=== PATIENT | female | born 1980 | race Caucasian/White ===

== ENCOUNTER 2016-08-19 18:02 | Inpatient (IN) | payer BC ==
[2016-08-19] MEDS ORDERED: LIDOCAINE 1% (PF) 10 MG/ML (30 ML SDV) SQ PRN (18:37)
[2016-08-19] MEDS ORDERED: OXYTOCIN 10 UNIT/ML 1 ML VIAL IM PRN (18:37)
[2016-08-19] MEDS ORDERED: METHYLERGONOVINE 0.2 MG/ML 1 ML AMP IM PRN (18:37)
[2016-08-19] MEDS ORDERED: TERBUTALINE 1 MG/ML VIAL SQ PRN (18:37)
[2016-08-19] MEDS ORDERED: CARBOPROST TROMETHAMINE 250 MCG/ML 1 ML AMP IM PRN (18:37)
[2016-08-19 18:41] LABS: Basophils % (A) 0 %; CH 32.3; CHCM 35.5; Eosinophils # (A) 0.1 k/uL (0-0.7); Eosinophils % (A) 1 %; HCT 34.6 % (34.0-46.0); HGB 11.8 gm/dL (11.4-16.0); Luc # (Auto) 0.16; Luc % (Auto) 2; Lymphocytes % (A) 20 %; MCH 31.2 pg (25.0-35.0); MCHC 34.1 g/dL (31.0-37.0); MCV 91.5 fL (80.0-100.0); Monocytes # (A) 0.4 k/uL (0-1.0); Monocytes % (A) 4 %; Neutrophils # (A) 7.2 k/uL (1.3-7.7); Neutrophils % (A) 73 %; RBC 3.78 m/uL (3.80-5.40); RDW 14.1 % (11.5-15.5); WBC 9.9 k/uL (3.8-10.6)
[2016-08-19] MEDS ORDERED: LACTATED RINGERS 1,000 ML IV SCH ×2 (18:45)
--- NOTE | 2016-08-19 19:16 | P.HPOB ---
History of Present Illness H&P Date: 08/19/16 Chief Complaint: 40-0/7 weeks, active labor The patient is a 36-year-old 3 para 1011 admitted at 40-0/7 weeks as established by last menstrual period and confirmed by second trimester ultrasound per she is admitted in active labor with documented spontaneous rupture of membranes. Her has been complicated by nephrolithiasis and no other concerns. Initial ultrasound showed full renal pelves at 19 weeks but rescan at 28 weeks was within normal limits. Group B strep status is negative. Obstetrical history: 3 para 1011 with 1 previous term vaginal delivery without compilations. Current statistics are listed above. EDC of was established by last menstrual period and confirmed by second trimester ultrasound. Laboratory workup done Schutze blood type of O+ with a negative antibody screen. Rubella status is immune. All other laboratory workup was within normal limits. Second trimester Glucola was normal and group B strep status is negative. Gynecologic history: Unremarkable with no history of any infections to include STDs. Review of Systems Review of systems is confined to history of present illness. Past Medical History Past Medical History: No Reported History History of Any Multi-Drug Resistant Organisms: None Reported Additional Past Surgical History / Comment(s): D&C in 2012, left breast surgery in 2001. Past Anesthesia/Blood Transfusion Reactions: No Reported Reaction Past Psychological History: No Psychological Hx Reported Smoking Status: Never smoker Past Alcohol Use History: None Reported Past Drug Use History: None Reported - Past Family History Mother Family Medical History: No Reported History Medications and Allergies Home Medications Medication Instructions Recorded Confirmed Type Pnv66/Iron Fumarate/FA/Dss/Dha 1 tab PO DAILY 05/19/16 05/19/16 History [Triveen-Prx Rnf Capsule] Allergies Allergy/AdvReac Type Severity Reaction Status Date / Time benzoyl peroxide AdvReac Rash/Hives Verified 05/19/16 04:45 Exam - Vital Signs Vital signs: Intake and Output 08/19/16 08/19/16 08/19/16 06:59 14:59 22:59 Other: Weight 63.049 kg Patient Weight 08/20/16 06:59 Weight 63.049 kg In general, this is a well-developed, well-nourished white female in discomfort as she is in active labor. Her heart has a regular rhythm and rate without murmur. Her lungs are clear to auscultation bilaterally in all egan. Her abdomen is gravid, nondistended, has normal active bowel sounds, is soft, nontender, without any palpable masses aside from uterine fundus. Her extremities are without any cyanosis, clubbing, or edema and are nontender to palpation bilaterally. Digital cervical examination demonstrates her cervix to be anterior lip, 90% effaced, the vertex in presentation at -1 station. Spontaneous rupture of membranes has been confirmed. Results Result Diagrams: 08/19/16 18:27 Abnormal Lab Results - Last 24 Hours (Table) 08/19/16 Range/Units 18:27 RBC 3.78 L (3.80-5.40) m/uL Assessment and Plan (1) Spontaneous rupture of amniotic membranes Status: Acute (2) Active labor at term Status: Acute Plan: The patient has been admitted for active management of labor. She has progressed very rapidly from presentation to anterior lip and is not a candidate at this point for epidural analgesia or IV analgesia. She will have expectant management along with close maternal and observation. I would anticipate normal vaginal delivery in the near future.
[2016-08-19 19:37] VITALS: BMI 24.6
[2016-08-19] MEDS ORDERED: Acetaminophen-Codeine 300-30mg TAB PO PRN ×2 (19:50)
[2016-08-19] MEDS ORDERED: BENZOCAINE/MENTHOL SPRAY 1 GM/SPRAY AEROSOL TOPICAL PRN (19:50)
[2016-08-19] MEDS ORDERED: SIMETHICONE 80 MG CHEWABLE PO PRN (19:50)
[2016-08-19] MEDS ORDERED: HYDROCORTISONE 2.5% RECTAL CREAM 30 GM TUBE RECTAL PRN (19:50)
[2016-08-19] MEDS ORDERED: diphenhydrAMINE 50 MG/ML 1 ML VIAL IVP PRN ×2 (19:50)
[2016-08-19] MEDS ORDERED: ZOLPIDEM 5 MG TAB PO PRN (19:50)
[2016-08-19] MEDS ORDERED: diphenhydrAMINE 25 MG CAP PO PRN (19:50)
[2016-08-19] MEDS ORDERED: diphenhydrAMINE 50 MG CAP PO PRN (19:50)
[2016-08-19] MEDS ORDERED: WITCH HAZEL 1 EACH MED..PAD TOPICAL PRN (19:50)
[2016-08-19] MEDS ORDERED: LANOLIN CREAM 5 GM TUBE TOPICAL PRN (19:50)
[2016-08-19] MEDS ORDERED: ACETAMINOPHEN TAB 325 MG TAB PO PRN (19:50)
--- NOTE | 2016-08-19 19:54 | P.PROBDLV ---
Vaginal Delivery Note - . Vaginal Delivery Note: The patient is a 36-year-old 3 para 1011 admitted at 40-0/7 weeks by good dating parameters perches admitted in active labor with spontaneous rupture of membranes and all signs reassuring. Her has been uncomplicated aside from nephrolithiasis. Group B strep status is negative. On labor and delivery, she was admitted at 5-600 m of dilation progressed fairly quickly to complete and 0 station. She pushed over the course of 1 contraction to a normal spontaneous vaginal delivery of a viable 8 lbs. 7 oz. baby girl with Apgars of 8 at 1 minute and 9 at 5 minutes delivered in the left occiput anterior position. The placenta was delivered spontaneously, intact, and grossly normal with a grossly normal, centrally inserted three-vessel cord. There were noted to be 2 lacerations, the first of which was a second-degree right labial laceration with a pumping blood vessel. This was closed with 3-0 chromic catgut without difficulty and did halt the bleeding. The second laceration was a first-degree midline perineal laceration which was over the site of a previous episiotomy scar and closed in standard fashion with 3-0 chromic catgut as well. Estimated blood loss for the case was approximate 450 mL. There were no complications. All sponge, instrument, and needle counts were correct. Both mother and infant are resting comfortably in recovery.
[2016-08-19] MEDS ORDERED: OXYTOCIN 30 UNITS/500 ML NS 30 UNIT in SALINE 1 500ML.BAG IV SCH (20:00)
[2016-08-19] MEDS: SENNOSIDES-DOCUSATE SODIUM 1 EACH TAB PO SCH (22:11)
[2016-08-19] MEDS: IBUPROFEN 600 MG TAB PO PRN (22:11)
[2016-08-20] MEDS: SENNOSIDES-DOCUSATE SODIUM 1 EACH TAB PO SCH ×2 (08:59→22:00)
[2016-08-20] MEDS: IBUPROFEN 600 MG TAB PO PRN ×2 (12:08→23:42)
--- NOTE | 2016-08-20 12:09 | P.PNOBGVD ---
Subjective - Subjective Patient reports: Reports appetite normal, Reports voiding normally, Reports pain well controlled, Reports ambulating normally : doing well, nursing well Objective - Latest Vital Signs Latest vital signs: Vital Signs Temp Pulse Pulse Resp BP BP Pulse Ox 08/20/16 08:00 97.9 F 90 16 102/65 08/20/16 04:00 98.2 F 73 18 101/67 08/20/16 00:00 97.8 F 97 18 115/73 08/19/16 21:41 99.1 F 84 18 107/61 08/19/16 21:11 98.2 F 87 18 113/63 96 08/19/16 20:41 82 16 107/60 08/19/16 20:26 88 18 105/60 08/19/16 20:11 98.5 F 87 18 110/63 98 08/19/16 19:56 88 18 112/65 08/19/16 19:41 97.6 F 88 17 116/70 98 08/19/16 19:13 97.3 F L 87 20 130/69 Intake and Output 08/19/16 08/20/16 08/20/16 22:59 06:59 14:59 Intake Total 600 Balance 600 Intake: Oral 600 Other: # Voids 1 1 Weight 63.049 kg - Exam Lungs: bilateral: normal Chest: Normal S1, Normal S2 Extremities: Present: normal Abdomen: Present: normal appearance, soft Uterus: Present: normal, firm (The uterine fundus is tonic and nontender well below the umbilicus.) - Labs Labs: Abnormal Lab Results - Last 24 Hours (Table) 08/19/16 Range/Units 18:27 RBC 3.78 L (3.80-5.40) m/uL Assessment and Plan (1) Spontaneous rupture of amniotic membranes Current Visit: Yes Status: Acute Code(s): EEA6157 - SNOMED Code(s): 019436265 (2) Active labor at term Current Visit: Yes Status: Acute Code(s): MNL7428 - SNOMED Code(s): 40819762 (3) Normal spontaneous vaginal delivery Narrative/Plan: Continue routine care. I would anticipate discharge home tomorrow pending no complications. Current Visit: Yes Status: Acute Code(s): O80 - ENCOUNTER FOR FULL-TERM UNCOMPLICATED DELIVERY SNOMED Code(s): 32097234
[2016-08-20 23:57] VITALS: TEMP 98.5
[2016-08-21 08:00] VITALS: BP 116/67; PULSE 77; RESP 18
[2016-08-21] MEDS: SENNOSIDES-DOCUSATE SODIUM 1 EACH TAB PO SCH (08:35)
--- NOTE | 2016-08-21 11:28 | P.DS ---
Providers Date of admission: 08/19/16 18:27 Expected date of discharge: 08/21/16 Attending physician: Zahra Wu Primary care physician: Stated None - Discharge Diagnosis(es) (1) Spontaneous rupture of amniotic membranes Current Visit: Yes Status: Acute (2) Active labor at term Current Visit: Yes Status: Acute (3) Normal spontaneous vaginal delivery Current Visit: Yes Status: Acute Hospital Course: The patient is a 36-year-old 3 para 1011 admitted at 40-0/7 weeks by good dating parameters. She is admitted in active labor with all signs reassuring. On labor and delivery, she made rapid progress to complete and then pushed to a normal spontaneous vaginal delivery of a viable 8 lbs. 7 oz. baby girl with Apgars of 8 at 1 minute and 9 at 5 minutes. Her course was unremarkable with vital signs remaining stable and her temperature was afebrile throughout. She was deemed stable for discharge by day #2 was discharged home to follow-up in the office in 6 weeks' time routinely. Discharge instructions included calling for any significantly increased bleeding or foul-smelling lochia, significantly increased fever or abdominal pain, perineal complaints, breast complaints, or anything else that concerned her. She was additionally instructed to have nothing in the vagina for at least 6 weeks time to include intercourse. She understood her instructions and agrees to follow up as noted above. Discharge medications included continued vitamins as she has opted to breast-feed. She was otherwise to use [id number] analgesic pain medications as needed. Maternal blood type is O + and rubella status is immune. Procedures: #1. Normal spontaneous vaginal delivery #2. Repair of perineal lacerations Patient Condition at Discharge: Good Plan - Discharge Summary Discharge Medication List Pnv66/Iron Fumarate/FA/Dss/Dha [Triveen-Prx Rnf Capsule] 1 tab PO DAILY [History] Follow up Appointment(s)/Referral(s): Zahra Wu MD [STAFF PHYSICIAN] - 6 Weeks Discharge Disposition: HOME SELF-CARE
== END 2016-08-21 12:10 | disposition home or self-care (01) | DRG 775 ==
LOC: FBPOP 18:02 → 4FBP 18:27
PROVIDERS: ADMIT Obstetrics & Gynecology; ATTEND Obstetrics & Gynecology
PROC: 10E0XZZ Delivery of Products of Conception, External Approach (ICD-10-PCS; principal; 2016-08-19)
PROC: 0UQMXZZ Repair Vulva, External Approach (ICD-10-PCS; 2016-08-19)
PROC: 0HQ9XZZ Repair Perineum Skin, External Approach (ICD-10-PCS; 2016-08-19)
DX: O70.0 First degree perineal laceration during delivery (principal); O26.899 Other specified pregnancy related conditions, unspecified trimester; Z88.8 Allergy status to other drugs, medicaments and biological substances; Z37.0 Single live birth; Z3A.40 40 weeks gestation of pregnancy; Z87.442 Personal history of urinary calculi
CPT/HCPCS: 59025; 84112; 85025; 88307; 99213

== ENCOUNTER 2019-05-01 05:20 | Inpatient (IN) | payer BC ==
[2019-05-01] MEDS ORDERED: CARBOPROST TROMETHAMINE 250 MCG/ML 1 ML AMP IM PRN (05:31)
[2019-05-01] MEDS ORDERED: TERBUTALINE 1 MG/ML VIAL SQ PRN (05:31)
[2019-05-01] MEDS ORDERED: OXYTOCIN 10 UNIT/ML 1 ML VIAL IM PRN (05:31)
[2019-05-01] MEDS ORDERED: METHYLERGONOVINE 0.2 MG/ML 1 ML AMP IM PRN (05:31)
[2019-05-01] MEDS ORDERED: LIDOCAINE 0.5% (PF) 5 MG/ML (50 ML SDV) SQ PRN (05:31)
[2019-05-01 05:39] VITALS: BMI 24.7
[2019-05-01] MEDS ORDERED: LACTATED RINGERS 1,000 ML IV SCH (05:45)
[2019-05-01 05:57] LABS: Basophils # (A) 0.1 k/uL (0-0.2); Basophils % (A) 1 %; Eosinophils # (A) 0.1 k/uL (0-0.7); Eosinophils % (A) 1 %; HCT 39.2 % (34.0-46.0); HGB 13.2 gm/dL (11.4-16.0); Lymphocytes # (A) 2.7 k/uL (1.0-4.8); Lymphocytes % (A) 25 %; MCH 32.2 pg (25.0-35.0); MCHC 33.8 g/dL (31.0-37.0); MCV 95.4 fL (80.0-100.0); Mean Platelet Volume 7.2; Monocytes # (A) 0.6 k/uL (0-1.0); Monocytes % (A) 6 %; Neutrophils # (A) 7.3 k/uL (1.3-7.7); Neutrophils % (A) 65 %; Platelet Count 249 k/uL (150-450); RBC 4.11 m/uL (3.80-5.40); RDW 14.5 % (11.5-15.5); WBC 11.2 k/uL (3.8-10.6)
[2019-05-01] MEDS ORDERED: ZOLPIDEM 5 MG TAB PO PRN (06:21)
[2019-05-01] MEDS ORDERED: WITCH HAZEL 1 EACH MED..PAD TOPICAL PRN (06:21)
[2019-05-01] MEDS ORDERED: BENZOCAINE/MENTHOL SPRAY 1 GM/SPRAY AEROSOL TOPICAL PRN (06:21)
[2019-05-01] MEDS ORDERED: HYDROCORTISONE 2.5% RECTAL CREAM 30 GM TUBE RECTAL PRN (06:21)
[2019-05-01] MEDS ORDERED: diphenhydrAMINE 25 MG CAP PO PRN (06:21)
[2019-05-01] MEDS ORDERED: HYDROcodone/APAP 5-325MG 1 EACH TAB PO PRN (06:21)
[2019-05-01] MEDS ORDERED: HYDROcodone/APAP 7.5-325MG 1 EACH TAB PO PRN (06:21)
[2019-05-01] MEDS ORDERED: diphenhydrAMINE 50 MG/ML 1 ML VIAL IVP PRN ×2 (06:21)
[2019-05-01] MEDS ORDERED: SIMETHICONE 80 MG CHEWABLE PO PRN (06:21)
[2019-05-01] MEDS ORDERED: LANOLIN CREAM 5 GM TUBE TOPICAL PRN (06:21)
[2019-05-01] MEDS ORDERED: ACETAMINOPHEN TAB 325 MG TAB PO PRN (06:21)
[2019-05-01] MEDS ORDERED: diphenhydrAMINE 50 MG CAP PO PRN (06:21)
--- NOTE | 2019-05-01 06:26 | P.HPOB ---
History of Present Illness H&P Date: 05/01/19 Chief Complaint: 39-0/7 weeks, active labor The patient is a 38-year-old 4 para 2011 admitted at 39-0/7 weeks as established by last menstrual period and confirmed by second trimester ultrasound. She is admitted in active labor with all signs reassuring. Her has been uncomplicated though she does fall into the category of advanced maternal age and declined testing. Group B strep status is negative. Obstetrical history: 4 para 2011 with 2 previous normal spontaneous vaginal deliveries and 1 early miscarriage requiring D&C. Current statistics are listed in history of present illness. EDC of 05/08/2019 was established by last menstrual period and confirmed by second trimester ultrasound. Laboratory workup demonstrates a blood type of O+ with a negative antibody screen. Rubella status is immune. The remainder of the laboratory workup was within normal limits. One hour Glucola was elevated but followed by a normal three-hour glucose tolerance test. Group B strep status is negative. Gynecologic history: Unremarkable with no history of any infections to include STDs. Review of Systems Review of systems is confined to history of present illness. Past Medical History Past Medical History: No Reported History History of Any Multi-Drug Resistant Organisms: None Reported Additional Past Surgical History / Comment(s): D&C in 2012, left breast surgery in 2001, dental implant, egg donation january 2018 Past Anesthesia/Blood Transfusion Reactions: No Reported Reaction Past Psychological History: Depression Additional Psychological History / Comment(s): PPD with 1st baby, not with 2nd Smoking Status: Never smoker Past Alcohol Use History: None Reported Past Drug Use History: None Reported - Past Family History Mother Family Medical History: No Reported History Medications and Allergies Home Medications Medication Instructions Recorded Confirmed Type Pnv 66/Iron/Folic/Docusate/Dha 1 tab PO DAILY 05/19/16 05/01/19 History [Triveen-Prx Rnf Capsule] Allergies Allergy/AdvReac Type Severity Reaction Status Date / Time benzoyl peroxide AdvReac Rash/Hives Verified 05/01/19 05:27 Exam Vital Signs Temp Pulse Resp BP Pulse Ox 05/01/19 05:42 96.8 F L 99 18 119/61 96 05/01/19 05:34 96.8 F L 99 18 119/61 96 Intake and Output 04/30/19 04/30/19 05/01/19 14:59 22:59 06:59 Other: # Voids 1 Weight 63.503 kg In general, this is a well-developed, well-nourished white female in discomfort secondary to active labor. Her heart has a regular rhythm and rate without murmur. Her lungs are clear to auscultation bilaterally in all egan. Her abdomen is gravid, nondistended, has normal active bowel sounds, is soft, nontender, and without any palpable masses aside from uterine fundus. Her extremities are without any cyanosis, clubbing, or edema and are nontender to palpation bilaterally. Digital cervical examination demonstrates her cervix to dilated to a rim, 90% effaced, with vertex in presentation at approximately 0 to -1 station. Artificial rupture of membranes is carried out demonstrating clear fluid. Results Result Diagrams: 05/01/19 05:37 Abnormal Lab Results - Last 24 Hours (Table) 05/01/19 Range/Units 05:37 WBC 11.2 H (3.8-10.6) k/uL Assessment and Plan (1) Active labor at term Current Visit: Yes Status: Acute Code(s): [id number] - SNOMED Code(s): 95907773 Plan: The patient is admitted for active management of labor. She will have close maternal and surveillance and expectant management will be practiced. Anticipate normal delivery shortly.
--- NOTE | 2019-05-01 06:28 | P.PROBDLV ---
Vaginal Delivery Note - . Vaginal Delivery Note: The patient is a 38-year-old 4 para 2011 admitted at 39-0/7 weeks by good dating parameters. She is admitted in active labor with all signs reassuring. Her has been uncomplicated though she falls into the category of advanced maternal age and declined testing for trisomies. On labor and delivery, she made rapid progress and was found to be dilated to a rim at which time she underwent artificial rupture of membranes demonstrating clear fluid. She progressed across 1 or 2 contractions to complete and then pushed over the course of one pushed to a normal spontaneous vaginal delivery of a viable 8 lbs. 10 oz. baby boy with Apgars of 8 at 1 minute and 9 at 5 minutes delivered in the right occiput anterior position. There was a loose nuchal cord 1 which was reduced following delivery of the . The placenta was delivered spontaneously, intact, and grossly normal with a grossly normal three- vessel cord inserted approximately 3 cm from the margin of the placental disc. There was a small first-degree midline perineal laceration over the site of a previous laceration which was repaired with a single [id number] stitch of 3-0 chromic catgut. Estimated blood loss for the case was approximately 250 mL. There are no complications. All sponge, instrument, needle counts were correct. Both mother and are resting comfortably in recovery.
[2019-05-01] MEDS ORDERED: OXYTOCIN 20 UNITS/1000 ML NS 1,000 ML IV SCH (06:30)
[2019-05-01 06:46] VITALS: RESP 16
[2019-05-01] MEDS: IBUPROFEN 600 MG TAB PO PRN ×2 (06:57→19:33)
[2019-05-01] MEDS: SENNOSIDES-DOCUSATE SODIUM 1 EACH TAB PO SCH (09:06)
[2019-05-02] MEDS: SENNOSIDES-DOCUSATE SODIUM 1 EACH TAB PO SCH ×2 (04:17→08:42)
--- NOTE | 2019-05-02 07:54 | P.DS ---
Providers Date of admission: 05/01/19 05:29 Expected date of discharge: 05/02/19 Attending physician: Zahra Wu Primary care physician: Stated None Hospital Course: This is a 38-year-old white female 4 para 2012 EDC 05/08/2019 at 39 weeks gestation. Patient presented to labor and delivery with strong regular uterine contractions, in obvious labor. is unremarkable, group B strep cultures negative, blood type O+, rubella status immune. Please see admitting history and physical for details Patient went on to deliver swiftly a liveborn male with scores of 8 and 9 at one and 5 minutes respectively. There was a small first-degree midline perineal laceration easily repaired. Estimated blood loss recorded at 250 mL's. weighed 3900 g or 8 lbs. 10 oz. Please see dictated delivery note for d etails. This morning the patient and her infant are both doing well. Circumcision has been performed on her son. Patient is ambulating, passing flatus, tolerating regular food, urinating without issues. Lochia rubra is minimal. Pain is well-controlled. Breast-feeding is going well. She has no issues or complaints. She is being discharged home today in very good condition and will follow-up with me in the office in 6 weeks. We have discussed contraception and her is electing to proceed with mastectomy. Patient is reminded no intercourse, tampons or douching. She will use rhub-idl-zhzqaak Advil or Aleve, or ibuprofen as needed for pain. I've asked her to call me with any fevers shakes or chills, foul smelling or copious lochia, with the passage of large blood clots, with any pain not alleviated by uiza-tpu-xeqdrer products, or indeed with any concerns. Patient Condition at Discharge: Good Plan - Discharge Summary Discharge Rx Participant: No New Discharge Prescriptions: No Action Pnv 66/Iron/Folic/Docusate/Dha [Triveen-Prx Rnf Capsule] 1 tab PO DAILY Discharge Medication List Pnv 66/Iron/Folic/Docusate/Dha [Triveen-Prx Rnf Capsule] 1 tab PO DAILY 05/19/16 [History] Follow up Appointment(s)/Referral(s): Zahra Wu MD [STAFF PHYSICIAN] - 6 Weeks Discharge Disposition: HOME SELF-CARE
[2019-05-02 08:39] VITALS: BP 107/61; PULSE 79; TEMP 97.2
== END 2019-05-02 13:30 | disposition home or self-care (01) | DRG 807 ==
LOC: FBPOP 05:20 → 4FBP 05:29
PROVIDERS: ADMIT Obstetrics & Gynecology; ATTEND Obstetrics & Gynecology
PROC: 10E0XZZ Delivery of Products of Conception, External Approach (ICD-10-PCS; principal; 2019-05-01)
PROC: 0HQ9XZZ Repair Perineum Skin, External Approach (ICD-10-PCS; 2019-05-01)
DX: O69.81X0 Labor and delivery complicated by cord around neck, without compression, not applicable or unspecified (principal); Z37.0 Single live birth; O70.0 First degree perineal laceration during delivery; Z3A.39 39 weeks gestation of pregnancy; Z88.8 Allergy status to other drugs, medicaments and biological substances; Z86.59 Personal history of other mental and behavioral disorders
CPT/HCPCS: 59025; 85025; 86850; 86900; 86901; 99213

== ENCOUNTER → 2021-11-04 | Outpatient (CLI) | payer BC ==
--- NOTE | 2021-11-05 12:09 | MM ---
Reason for exam: screening (asymptomatic). Baseline mammogram. History: Excisional biopsy of the left breast, 1999. Took hormonal contraceptives beginning at age 19. Physical Findings: A clinical breast exam by your physician is recommended on an annual basis and results should be correlated with mammographic findings. MG Screening Mammo w CAD Bilateral CC and MLO view(s) were taken. The breast tissue is extremely dense which could obscure a lesion on mammography. Finding: There are typically benign round, diffuse/scattered and grouped calcifications in both breasts. Focal asymmetry 6mm middle posterior outer aspect right breast. ASSESSMENT: Incomplete: need additional imaging evaluation, BI-RAD 0 RECOMMENDATION: Special view mammogram of the right breast. If lesion persists on supplemental views, image directed ultrasound is recommended. [facility] will attempt to contact patient to return for supplemental views and ultrasound if indicated.
== END | disposition home or self-care (01) ==
LOC: RADMAMWWP 15:51
PROVIDERS: ATTEND Obstetrics & Gynecology
DX: Z12.31 Encounter for screening mammogram for malignant neoplasm of breast (principal)
CPT/HCPCS: 77067

== ENCOUNTER → 2021-11-08 | Outpatient (CLI) | payer BC ==
--- NOTE | 2021-11-08 13:50 | MM ---
Reason for exam: additional evaluation requested from abnormal screening. Last mammogram was performed less than 1 month ago. History: Excisional biopsy of the left breast, 1999. Took hormonal contraceptives beginning at age 19. Physical Findings: A clinical breast exam by your physician is recommended on an annual basis and results should be correlated with mammographic findings. MG 3D Work Up W/Cad RT Spot compression CC and LM view(s) were taken of the right breast. Prior study comparison: November 04, 2021, bilateral MG screening mammo w CAD. The breast tissue is heterogeneously dense. This may lower the sensitivity of mammography. Nodule 8 o'clock right breast 4.8cm from nipple, nodule measures 8.6mm. Results were given to the patient verbally at the time of the exam. ASSESSMENT: Incomplete: need additional imaging evaluation, BI-RAD 0 RECOMMENDATION: Ultrasound of the right breast.
--- NOTE | 2021-11-08 13:52 | USB ---
Reason for exam: additional evaluation requested from abnormal screening. History: Excisional biopsy of the left breast, 1999. Took hormonal contraceptives beginning at age 19. Physical Findings: A clinical breast exam by your physician is recommended on an annual basis and results should be correlated with mammographic findings. US Breast Workup Limited RT Right limited breast ultrasound including focal area of concern, retroareolar and axilla demonstrates a 0.6 x 0.7 x 0.5cm oval, lobular, mixed, hypoechoic lesion at 8 o'clock biopsy recommended and a 0.9 x 0.7 x 0.6cm lymph node at the axilla. Results were given to the patient verbally at the time of the exam. ASSESSMENT: Suspicious, BI-RAD 4 RECOMMENDATION: Ultrasound core biopsy of the right breast. Called Dr. Wu's office with mammographic findings and has scheduled an appointment for the patient for 12/01/21 at 9:[address] Casanova. Biopsy scheduled for 11/24/21 at 10:00. PRELIMINARY REPORT CALLED AND FAXED TO DR. CASANOVA ON 11/08/21.
== END | disposition home or self-care (01) ==
LOC: RADMAMWWP 09:04
PROVIDERS: ATTEND Obstetrics & Gynecology
DX: R92.8 Other abnormal and inconclusive findings on diagnostic imaging of breast (principal)
CPT/HCPCS: 77061; 77065

== ENCOUNTER → 2021-11-24 | Day surgery (SDC) | payer BC ==
--- NOTE | 2021-11-25 07:29 | USB ---
EXAMINATION TYPE: US biopsy breast VAD RT DATE OF EXAM: 11/24/2021 CLINICAL HISTORY: R92.8 abnormal mammogram. Abnormal ultrasound TECHNIQUE: Ultrasound guided vaccuum assisted core biopsy of right breast. COMPARISON: NONE FINDINGS: The ultrasound guided core biopsy procedure was explained to the patient. The risks, benefits, alternatives were discussed. An informed consent was then obtained. Timeout was performed. The patient was placed in supine positioning for imaging and for the procedure. The overlying skin was prepped with betadine and sterilely draped in usual sterile fashion. Lidocaine 1% was used as anesthetic into the skin and deeper breast tissue up to area of concern in the breast. A small skin jackeline was made with surgical scalpel. Under ultrasound guidance, a 12-gauge vacuum assisted biopsy device was used to obtain 10 core samples. A biopsy clip was left in lesion. A wing clip was placed Good hemostasis was obtained with direct pressure. Discharge instructions were discussed with the patient. The patient will follow up with the referring physician for results. Postprocedure mammogram: The patient was transferred to mammography for physician ordered post procedure mammogram for clip placement verification. The clip is in the expected region of the biopsy. The patient tolerated the procedure well without any immediate complication. The patient was discharged to home in stable condition. IMPRESSION: 1. Successful ultrasound guided biopsy right breast. Recommendations: 1. Recommendations are pending pathology results. Pathology Results: Benign RIGHT BREAST, 8:00, NEEDLE CORE BIOPSY: Fibroadenoma/fibroadenomatoid hyperplasia with calcifications and background fibrocystic changes. Recommendation Follow up ultrasound of the right breast in 6 months. KAYLEE
== END ==
LOC: RADUSWWP 10:04
PROVIDERS: ATTEND Student in an Organized Health Care Education/Training Program
DX: D24.1 Benign neoplasm of right breast (principal); N60.11 Diffuse cystic mastopathy of right breast
CPT/HCPCS: 88305; 77065; 19083; A4648

== ENCOUNTER → 2022-07-07 | Outpatient (CLI) | payer BC ==
--- NOTE | 2022-07-07 15:50 | USB ---
Reason for Exam: Follow-up at short interval from prior study. Patient History: Hormonal Contraceptives, from age 19 until age 22. 1999, Excisional Biopsy on the Left side. 11/24/2021, Benign Core Biopsy on the right side. Risk Values: Mahnaz 5 year model risk: 0.9%. NCI Lifetime model risk: 10.9%. Prior Study Comparison: 11/04/2021 Bilateral Screening Mammogram, [facility]. 11/08/2021 Right Diagnostic Mammogram, [facility]. 11/24/2021 Right Diagnostic Mammogram, [facility]. Findings: The lower outer quadrant of the right breast, the axilla of the right breast and the retroareolar of the right breast were scanned. There is a 0.3 x 0.7 x 0.4 cm oval hypoechoic area 8:00 position 3 cm the nipple corresponding to prior biopsy site.. Overall Assessment: Benign, BI-RAD 2 Management: Screening Mammogram of both breasts at age 42. A clinical breast exam by your physician is recommended on an annual basis and results should be correlated with mammographic findings. This exam should not preclude additional follow-up of suspicious palpable abnormalities. ??Results were given to the patient verbally at the time of exam. Electronically signed and approved by: Alejandro Nunes D.O. Radiologis
== END | disposition home or self-care (01) ==
LOC: RADUSWWP 15:10
PROVIDERS: ATTEND Surgery
DX: R92.8 Other abnormal and inconclusive findings on diagnostic imaging of breast (principal); Z98.890 Other specified postprocedural states

== ENCOUNTER → 2024-01-04 | Outpatient (CLI) | payer BC ==
--- NOTE | 2024-01-05 12:00 | MM ---
Reason for Exam: Screening (asymptomatic). Last mammogram was performed 2 year(s) and 2 month(s) ago. Patient History: Menarche at age 15. First Full-Term at age 33. Late child-bearing (after 32). Hormonal Contraceptives, from age 19 until age 22. 1999, Excisional Biopsy on the Left side. 11/24/2021, Benign Core Biopsy on the right side. Last menstrual period: 12/09/2023 Risk Values: Mahnaz 5 year model risk: 2.2%. NCI Lifetime model risk: 21.1%. Prior Study Comparison: 11/04/2021 Bilateral Screening Mammogram, [facility]. 11/08/2021 Right Diagnostic Mammogram, [facility]. 11/24/2021 Right Diagnostic Mammogram, [facility]. Tissue Density: The breasts are extremely dense, which lowers the sensitivity of mammography. Findings: Analyzed By CAD. There is no suspicious group of microcalcifications or new suspicious mass in either breast. Postbiopsy clip noted in the right breast. Benign appearing calcifications. Benign-appearing lymph nodes. Overall Assessment: Benign, BI-RAD 2 Management: Screening Mammogram of both breasts in 1 year. . Patient should continue monthly self-breast exams. A clinical breast exam by your physician is recommended on an annual basis. This exam should not preclude additional follow-up of suspicious palpable abnormalities. Note on Mahnaz scores and lifetime risk: 1. A Mahnaz score greater than 3% is considered moderate risk. If this is the case, consider specialist referral to assess eligibility for a risk reducing agent. 2. If overall lifetime risk for the development of breast cancer is 20% or higher, the patient may qualify for future screening with alternating mammogram and breast MRI. Electronically signed and approved by: eGnaro Silverio M.D. Radiologis
== END | disposition home or self-care (01) ==
LOC: RADMAMWWP 08:17
PROVIDERS: ATTEND Family Medicine
DX: Z12.31 Encounter for screening mammogram for malignant neoplasm of breast (principal)
CPT/HCPCS: 77067

== ENCOUNTER 2024-03-15 09:30 | Day surgery (SDC) | payer BC ==
[2024-03-15] MEDS ORDERED: LIDOCAINE HCL/PF 20 MG/ML 10 ML AMP ONE (09:34)
[2024-03-15] MEDS ORDERED: LACTATED RINGERS 1,000 ML BAG ONE (09:34)
[2024-03-15] MEDS ORDERED: PROPOFOL 10 MG/ML 20 ML VIAL IV ONE (09:34)
--- NOTE | 2024-03-15 15:58 | PCN ---
PROCEDURE NOTE REQUESTING PHYSICIAN: Dr. Suellen Wong. BRIEF HISTORY: The patient is a 43-year-old pleasant white female scheduled for an elective colonoscopy as part of screening for colorectal neoplasia. She does have family history of colon cancer diagnosed in her grandmother and she was diagnosed with CHRPE (congenital hereditary retinal pigmentation) which has increased risk of developing colon polyposis. PROCEDURE PERFORMED: Colonoscopy. PREOPERATIVE DIAGNOSIS: Screening for colon cancer/history of CHRPE and family history of colon cancer. ANESTHESIA: IV sedation per Anesthesia. DESCRIPTION OF PROCEDURE: After informed consent was obtained from the patient, she was brought in to the endoscopy unit. IV conscious sedation was administered by anesthesia under continuous monitoring. Initial digital rectal examination was normal. The Olympus CF-190 video colonoscope was then inserted in the rectum, gradually advanced into the cecum. Careful examination was performed as the scope was gradually being withdrawn. The ileocecal valve and appendiceal orifice were visualized and appeared normal. The prep was excellent. Mucosa of the cecum, ascending colon, transverse colon, descending colon, sigmoid colon, and rectum appeared normal. In the rectum, retroflexion was performed. No lesions were noted, and the patient tolerated the procedure well. IMPRESSION: Normal-appearing colon from rectum to cecum with no evidence of colitis or colorectal neoplasia. RECOMMENDATIONS: Findings of this examination were discussed with the patient as well as the family. She was advised to have repeat screening colonoscopy in 10 years. MMODL / IJN: [id number] /
== END 2024-03-15 10:40 ==
LOC: ORWHC2ENDO 09:30
PROVIDERS: ATTEND Internal Medicine Gastroenterology
DX: Z12.11 Encounter for screening for malignant neoplasm of colon (principal); N20.0 Calculus of kidney; Z80.0 Family history of malignant neoplasm of digestive organs; Z98.890 Other specified postprocedural states
CPT/HCPCS: 45378; 81025